=== PATIENT | male | born 1985 | race Asian ===

== ENCOUNTER 2021-09-30 17:23 | Emergency (ER) | payer OTHER ==
[2021-09-30 17:50] VITALS: BP 129/92; PULSE 78; RESP 18; TEMP 99.2; BMI 27.2
[2021-09-30] MEDS ORDERED: KETOROLAC TROMETHAMINE 30 MG/1 ML VIAL IVPUSH ONE (17:51)
[2021-09-30] MEDS ORDERED: SODIUM CHLORIDE 0.9% 500 ML INFUS.BAG IV ONE (17:51)
[2021-09-30] MEDS ORDERED: KETOROLAC TROMETHAMINE 30 MG/1 ML VIAL ONE (18:15)
[2021-09-30 18:31] LABS: HEMATOCRIT 50.4 % (35.4-49); HEMOGLOBIN 17.6 G/dL (11.7-16.9); MCH 29.9 pg (25.7-33.7); MCHC 34.9 g/dl (32.0-35.9); MEAN CELL VOLUME 85.5 fl (80-96); PLATELET COUNT 174.5 10^3/uL (134-434); RBC 5.89 10^6/uL (4.00-5.60); RDW 14.4 % (11.9-15.9); WHITE BLOOD COUNT 6.8 10^3/uL (4.0-10.8)
[2021-09-30 18:40] LABS: ALBUMIN 4.5 g/dl (3.4-5.0); BILIRUBIN,TOTAL 0.9 mg/dl (0.2-1); CALCIUM 9.4 mg/dl (8.5-10); CREATININE 0.9 mg/dl (0.55-1.3); TOT PROT 7.4 g/dl (6.4-8.2)
[2021-09-30 19:24] LABS: ERYTHROCYTE SEDIMENTATION RATE 2 mm/hr (0-10)
[2021-09-30 19:33] LABS: VENOUS BASE EXCESS -3.2 mmol/L (-2-2); VENOUS O2 SATURATION 84.9 % (70-80); VENOUS PCO2 37.9 mmHg (38-52); VENOUS PH 7.372 (7.310-7.410)
[2021-09-30 19:49] LABS: PLATELET ESTIMATE ADEQUATE
== END 2021-09-30 21:17 | disposition home or self-care (01) ==
LOC: FER 17:23
PROC: 3E033GC Introduction of Other Therapeutic Substance into Peripheral Vein, Percutaneous Approach (ICD-10-PCS; principal; 2021-09-30)
DX: B09 Unspecified viral infection characterized by skin and mucous membrane lesions (principal); R51.9 Headache, unspecified
CPT/HCPCS: 36415; 80053; 82803; 83605; 85027; 85651; 86140; 86790; 87070; 87186; 87205; 87252; 99284-25